=== PATIENT | female | born 1950 | race Caucasian/White ===

== ENCOUNTER → 2025-03-22 | Outpatient (REF) | payer MEDICARE, OTHER | LOC: M LAB REF 11:28 | PROVIDERS: ATTEND Internal Medicine Gastroenterology | DX: R19.7 Diarrhea, unspecified (principal) ==

== ENCOUNTER 2025-04-05 10:18 | Day surgery (SDC) | payer MEDICARE, OTHER ==
[~2025-04-05] VITALS: Ht 157.5 cm; Wt 62.1 kg
[~2025-04-05 10:18] MED LIST: ADVI200T PO; ASHW500C PO; DULO1CAP6 PO; ECOT81TA5 PO; GABA-1172 PO; METO1TAB32 PO; OMEP40CA5 PO; ZOLP5TAB9 PO; [UNRECOGNIZED DRUG - CODE] PO
[2025-04-05] MEDS ORDERED: LIDOCAINE 2% 100 MG/5 ML SDV (FOR ANES.) As Ordered ONE (11:10)
== END 2025-04-05 12:27 | disposition home or self-care (01) ==
LOC: M SDC 10:18 → EDUNIT# 12:15 → M SDC 12:27
PROVIDERS: ATTEND Internal Medicine Gastroenterology
DX: R19.7 Diarrhea, unspecified (principal); R11.0 Nausea; K64.0 First degree hemorrhoids; I10 Essential (primary) hypertension; G90.A Postural orthostatic tachycardia syndrome [POTS]; Z88.0 Allergy status to penicillin; Z79.899 Other long term (current) drug therapy